=== PATIENT | male | born 1990 | race Caucasian/White ===

== ENCOUNTER 2024-12-01 12:07 | Emergency (ER) | payer SELFPAY ==
[~2024-12-01] VITALS: Ht 172.7 cm; Wt 79.0 kg
[2024-12-01 12:14] VITALS: O2SAT 99
[2024-12-01] MEDS ORDERED: NAPR-1164 MT (13:24)
[2024-12-01] MEDS: KETOROLAC 30MG/ML VIAL IM ONE (13:30)
[2024-12-01 14:29] VITALS: BP 132/76; PULSE 99; RESP 19; TEMP 36.8; O2SAT 98
== END 2024-12-01 14:37 | disposition home or self-care (01) ==
LOC: ER 12:07
DX: M79.606 Pain in leg, unspecified (principal)
CPT/HCPCS: 99284; 73590; 73610; 96372; J1885